=== PATIENT | male | born 1960 | race Caucasian/White ===

== ENCOUNTER 2022-04-25 14:57 | Emergency (ER) | payer OTHER ==
[~2022-04-25] VITALS: Ht 170.2 cm; Wt 68.0 kg
[2022-04-25] MEDS ORDERED: ACETAMINOPHEN 500 MG TABLET PO ONE (16:30)
[2022-04-25 16:54] LABS: EOSINOPHILS % (AUTO) 3.8 % (1.0-6.0); HEMATOCRIT 39.8 % (41-53); HEMOGLOBIN 13.2 g/dL (13.5-17.5); LYMPHOCYTES # (AUTO) 1.6 K/uL (1.0-4.8); LYMPHOCYTES % (AUTO) 40.5 % (22.0-44.0); MEAN CORPUSCULAR HEMOGLOBIN 33.1 pg (26.0-34.0); MEAN CORPUSCULAR HGB CONC 33.2 G/dL (31.0-37.0); MEAN CORPUSCULAR VOLUME 100 fL (80-100); MONOCYTES # (AUTO) 0.5 K/uL (0.1-1.0); MONOCYTES % (AUTO) 11.3 % (2.0-9.0); NEUTROPHILS # (AUTO) 1.7 K/uL (1.8-7.7); NEUTROPHILS % (AUTO) 43.4 % (40.0-70.0); PLATELET COUNT (AUTO) 181 K/uL (150-450); RED BLOOD CELL COUNT(AUTO) 3.99 MIL/uL (4.50-5.90); RED CELL DISTRIBUTION WIDTH 13.9 % (11.5-14.5)
[2022-04-25 17:02] LABS: ANION GAP 2 mmol/L (8-16); CALCIUM, TOTAL 8.6 mg/dL (8.8-10.5); CARBON DIOXIDE 31 mmol/L (22-29); CHLORIDE 105 mmol/L (98-107); CREATININE 0.77 mg/dL (0.60-1.30); GLUCOSE,RANDOM 88 mg/dL (70-110); POTASSIUM 4.2 mmol/L (3.5-5.1); SODIUM SERUM 138 mmol/L (136-145); UREA NITROGEN, BLOOD 14 mg/dL (7-18)
[2022-04-25 17:03] LABS: GLOMERULAR FILTR. RATE CALC > 60 mL/min (>60)
[2022-04-25 17:10] LABS: ALANINE AMINOTRANSFERASE 22 U/L (12-78); ALBUMIN 3.4 g/dL (3.4-5.0); ALKALINE PHOSPHATASE 72 U/L (46-116); ASPARTATE AMINOTRANSFERASE 27 U/L (15-37); BILIRUBIN,TOTAL 0.5 mg/dL (0.1-1.0); TOTAL PROTEIN, SERUM 6.5 g/dL (6.4-8.2)
[2022-04-25 17:30] LABS: AMPHET/METH SCREEN,URINE NEGATIVE (NEGATIVE); BARBITURATE SCREEN, URINE NEGATIVE (NEGATIVE); BENZODIAZEPINES SCREEN,URINE NEGATIVE (NEGATIVE); CANNABINOID SCREEN,URINE POSITIVE (NEGATIVE); COCAINE SCREEN,URINE NEGATIVE (NEGATIVE); METHADONE SCREEN, URINE NEGATIVE (NEGATIVE); OPIATE SCREEN,URINE NEGATIVE (NEGATIVE)
[2022-04-25 17:32] LABS: PHENCYCLIDINE SCREEN,URINE NEGATIVE (NEGATIVE)
[2022-04-25 18:03] VITALS: BP 115/79
== END 2022-04-25 18:10 ==
LOC: EMS 15:01
DX: S80.11XA Contusion of right lower leg, initial encounter (principal); F10.20 Alcohol dependence, uncomplicated; F15.10 Other stimulant abuse, uncomplicated; F11.129 Opioid abuse with intoxication, unspecified; F12.90 Cannabis use, unspecified, uncomplicated; F17.210 Nicotine dependence, cigarettes, uncomplicated; X58.XXXA Exposure to other specified factors, initial encounter; Y93.89 Activity, other specified; Y92.89 Other specified places as the place of occurrence of the external cause; Y99.8 Other external cause status
CPT/HCPCS: 73552; 80053; 80307; 85025; 99284

== ENCOUNTER 2022-04-26 15:35 | Inpatient (IN) | payer OTHER ==
[~2022-04-26] VITALS: Ht 165.1 cm; Wt 65.5 kg
[2022-04-26 16:49] LABS: COVID AG,FIA SOURCE NASOPHARYNGEAL
[2022-04-26 16:54] LABS: APPEARANCE,URINE CLEAR (CLEAR); BILIRUBIN,URINE NEGATIVE (NEGATIVE); GLUCOSE, URINE (UA) NEGATIVE (NEGATIVE); KETONES,URINE NEGATIVE (NEGATIVE); LEUKOCYTE ESTERASE ,URINE NEGATIVE (NEGATIVE); NITRATE,URINE NEGATIVE (NEGATIVE); OCCULT BLOOD,URINE NEGATIVE (NEGATIVE); PROTEIN,URINE NEGATIVE (NEGATIVE); SPECIFIC GRAVITIY, URINE 1.022 (1.003-1.030)
[2022-04-26 16:58] LABS: AMPHET/METH SCREEN,URINE NEGATIVE (NEGATIVE); BARBITURATE SCREEN, URINE NEGATIVE (NEGATIVE); BENZODIAZEPINES SCREEN,URINE NEGATIVE (NEGATIVE); CANNABINOID SCREEN,URINE POSITIVE (NEGATIVE); COCAINE SCREEN,URINE NEGATIVE (NEGATIVE); METHADONE SCREEN, URINE NEGATIVE (NEGATIVE); OPIATE SCREEN,URINE NEGATIVE (NEGATIVE)
[2022-04-26 17:01] LABS: PHENCYCLIDINE SCREEN,URINE NEGATIVE (NEGATIVE)
[2022-04-26 17:17] LABS: BASOPHILS % (AUTO) 0.8 % (0.0-2.0); EOSINOPHILS % (AUTO) 3.1 % (1.0-6.0); HEMATOCRIT 40.1 % (41-53); HEMOGLOBIN 13.1 g/dL (13.5-17.5); LYMPHOCYTES # (AUTO) 1.5 K/uL (1.0-4.8); LYMPHOCYTES % (AUTO) 37.8 % (22.0-44.0); MEAN CORPUSCULAR HEMOGLOBIN 32.5 pg (26.0-34.0); MEAN CORPUSCULAR HGB CONC 32.5 G/dL (31.0-37.0); MEAN CORPUSCULAR VOLUME 100 fL (80-100); MONOCYTES # (AUTO) 0.4 K/uL (0.1-1.0); MONOCYTES % (AUTO) 11.6 % (2.0-9.0); NEUTROPHILS # (AUTO) 1.8 K/uL (1.8-7.7); NEUTROPHILS % (AUTO) 46.7 % (40.0-70.0); PLATELET COUNT (AUTO) 183 K/uL (150-450); RED BLOOD CELL COUNT(AUTO) 4.02 MIL/uL (4.50-5.90); RED CELL DISTRIBUTION WIDTH 13.7 % (11.5-14.5)
[2022-04-26 17:27] LABS: ANION GAP 3 mmol/L (8-16); CALCIUM, TOTAL 8.3 mg/dL (8.8-10.5); CARBON DIOXIDE 31 mmol/L (22-29); CHLORIDE 105 mmol/L (98-107); CREATININE 0.78 mg/dL (0.60-1.30); GLUCOSE,RANDOM 91 mg/dL (70-110); POTASSIUM 4.3 mmol/L (3.5-5.1); SODIUM SERUM 139 mmol/L (136-145); UREA NITROGEN, BLOOD 12 mg/dL (7-18)
[2022-04-26 17:28] LABS: GLOMERULAR FILTR. RATE CALC > 60 mL/min (>60)
[2022-04-26 17:42] LABS: ALANINE AMINOTRANSFERASE 20 U/L (12-78); ALBUMIN 3.3 g/dL (3.4-5.0); ALKALINE PHOSPHATASE 66 U/L (46-116); ASPARTATE AMINOTRANSFERASE 23 U/L (15-37); BILIRUBIN,TOTAL 0.4 mg/dL (0.1-1.0); THYROID STIMULATING HORMONE 1.67 uIU/mL (0.36-3.74); TOTAL PROTEIN, SERUM 6.3 g/dL (6.4-8.2)
[2022-04-26] MEDS ORDERED: ACETAMINOPHEN 325 MG TABLET PO PRN (17:45)
[2022-04-26] MEDS ORDERED: SODIUM CHLORIDE 0.9% 1,000 ML IV ONE (17:45)
[2022-04-26] MEDS ORDERED: ZOLPIDEM TARTRATE 5 MG TABLET PO PRN (17:45)
[2022-04-26] MEDS ORDERED: ONDANSETRON HCL 4 MG/2 ML VIAL IVP PRN (17:45)
[2022-04-26] MEDS ORDERED: LORazepam 2 MG/ML VIAL IVP PRN (17:45)
[2022-04-26 21:05] VITALS: BP 131/65
[2022-04-26] MEDS: DOCUSATE SODIUM 100 MG CAPSULE PO SCH (21:05)
[2022-04-27 04:10] VITALS: BP 117/66
[2022-04-27 07:39] VITALS: BP 105/67
[2022-04-27] MEDS: DOCUSATE SODIUM 100 MG CAPSULE PO SCH ×2 (08:40→20:17)
[2022-04-27] MEDS: FAMOTIDINE 20 MG TABLET PO SCH (08:40)
[2022-04-27 15:44] VITALS: BP 119/69
[2022-04-27 20:19] VITALS: BP 116/60
[2022-04-28 05:27] VITALS: BP 127/74
[2022-04-28] MEDS: DOCUSATE SODIUM 100 MG CAPSULE PO SCH (08:34)
[2022-04-28] MEDS: FAMOTIDINE 20 MG TABLET PO SCH (08:34)
== END 2022-04-28 15:10 | DRG 93 ==
LOC: EMS 15:41 → 6S 18:20
PROVIDERS: ADMIT Internal Medicine; ATTEND Internal Medicine
DX: G92.9 Unspecified toxic encephalopathy (principal); D72.825 Bandemia; F11.10 Opioid abuse, uncomplicated; F12.10 Cannabis abuse, uncomplicated; Z20.822 Contact with and (suspected) exposure to COVID-19; F15.10 Other stimulant abuse, uncomplicated; F20.9 Schizophrenia, unspecified; Z87.891 Personal history of nicotine dependence
CPT/HCPCS: 70450; 80053; 81003; 84443; 85025; 99285; G0480; J7030